=== PATIENT | male | born 1955 | race Caucasian/White ===

== ENCOUNTER 2016-12-23 03:32 | Emergency (ER) | payer OTHER ==
[~2016-12-23] VITALS: Ht 175.3 cm; Wt 84.1 kg
[2016-12-23 03:37] VITALS: TEMP 97.8
[2016-12-23] MEDS ORDERED: LIPITOR 10MG10 MG PO (03:42)
[2016-12-23] MEDS ORDERED: MOBIC15 MG PO (03:42)
[2016-12-23] MEDS ORDERED: THORAZINE 225 MG/TAB PO (05:53)
[2016-12-23 06:19] VITALS: BP 148/72; PULSE 86
== END 2016-12-23 06:20 | disposition home or self-care (01) ==
LOC: COL.ER 03:32
DX: R06.6 Hiccough (principal); E78.5 Hyperlipidemia, unspecified; Z85.72 Personal history of non-Hodgkin lymphomas
CPT/HCPCS: J3230